=== PATIENT | female | born 1970 | race Caucasian/White ===

== ENCOUNTER 2016-03-30 09:28 | Emergency (ER) | payer MEDICAID, OTHER ==
[~2016-03-30] VITALS: Ht 160 cm; Wt 63.5 kg
[~2016-03-30 09:28] MED LIST: DELTASONE10 MG PO; FLEXERIL10 MG PO; MOTRIN600 MG PO; PROAIR HFA0.09 MG/Ac IH; PROVENTIL2.5 MG/3 M IH; ULTRAM50 MG PO; albuterol; nebulizer
[2016-03-30 09:30] VITALS: BP 127/81
--- NOTE | 2016-03-30 09:35 | NUR ---
EKG done in triage room.
--- NOTE | 2016-03-30 09:39 | NUR ---
Patient ambulated to bed 05.
--- NOTE | 2016-03-30 09:40 | NUR ---
45 /F BIB FAMILY C/O COUGH X 5 DAYS. PT STATES "I HAVE HEADACHE & CHEST PAIN W/COUGH; I GOT ANTIBIOTIC MEDICINES FROM URGENT CARE 5 DAYS AGO BUT STILL COUGH & FEVER. PT DENIES N/V/D; SKIN IS PINK/WARM/DRY; AAOX4 WITH EVEN AND STEADY GAIT; LUNGS BL MINIMAL WHEEZING; HR EVEN AND REGULAR; PT DENIES ANY FEVER OR SOB AT THIS TIME; PATIENT STATES PAIN OF0/10 AT THIS TIME; VSS; PATIENT POSITIONED FOR COMFORT; HOB ELEVATED; BEDRAILS UP X2; BED DOWN. ER MD MADE AWARE OF PT STATUS.
--- NOTE | 2016-03-30 09:56 | NUR ---
X RAY AT BEDSIDE
--- NOTE | 2016-03-30 10:30 | NUR ---
ER MD DR. BALLARD EVALUATING PT AT BEDSIDE.
--- NOTE | 2016-03-30 10:42 | NUR ---
PT C/O HEADACHE ;08/18. NOTIFIED DR BALLARD
[2016-03-30] MEDS ORDERED: KETOROLAC 60 MG/2 ML VIAL IM ONE (10:45)
[2016-03-30] MEDS ORDERED: ALBUTEROL 0.083% 2.5 MG/3 ML NEBU INH ONE (10:45)
[2016-03-30] MEDS ORDERED: methylPREDNISolone SS 125 MG in WATER STERILE 2 ML IM ONE (10:45)
--- NOTE | 2016-03-30 10:48 | NUR ---
RT at bedside to give patient breathing treatment.
--- NOTE | 2016-03-30 10:55 | NUR ---
[facility]i chang in [facility] - 03/30/16 at 1137 by MED1 RT AT BEDSIDE
--- NOTE | 2016-03-30 11:49 | NUR ---
Patient appears to be resting comfortably in bed. Vital Signs within normal limits. Respirations even and unlabored.WILL CONTINUE TO MONITOR.
[2016-03-30 12:05] VITALS: BP 116/72
--- NOTE | 2016-03-30 12:05 | NUR ---
Patient discharged with v/s stable. Written and verbal after care instructions given and explained. Patient alert, oriented and verbalized understanding of instructions. Ambulatory with steady gait. All questions addressed prior to discharge. ID band removed. Patient advised to follow up with PMD. Rx of ALBUTEROL & PREDNISONE given. Patient educated on indication of medication including possible reaction and side effects. Opportunity to ask questions provided and answered.
== END 2016-03-30 12:05 | disposition home or self-care (01) ==
LOC: MED 09:28
DX: J09.X2 Influenza due to identified novel influenza A virus with other respiratory manifestations (principal); R03.0 Elevated blood-pressure reading, without diagnosis of hypertension; J45.909 Unspecified asthma, uncomplicated; K21.9 Gastro-esophageal reflux disease without esophagitis
CPT/HCPCS: 36415; 71010; 87804; 93005; 94640; 94664; 96372; 99285; J1885; J2930; J7613; Q0092

== ENCOUNTER 2016-09-10 18:49 | Emergency (ER) | payer OTHER ==
[~2016-09-10] VITALS: Ht 160 cm; Wt 63.5 kg
[~2016-09-10 18:49] MED LIST changes: +ALBU-136 IH; -DELTASONE10 MG PO; -FLEXERIL10 MG PO; -MOTRIN600 MG PO; -PROAIR HFA0.09 MG/Ac IH; -PROVENTIL2.5 MG/3 M IH; -ULTRAM50 MG PO; -albuterol; -nebulizer
[2016-09-10 19:06] VITALS: BP 132/78
[2016-09-10 21:55] VITALS: BP 119/73
== END 2016-09-10 21:55 | disposition home or self-care (01) ==
LOC: MED 18:49
DX: D25.9 Leiomyoma of uterus, unspecified (principal); J45.909 Unspecified asthma, uncomplicated; K21.9 Gastro-esophageal reflux disease without esophagitis
CPT/HCPCS: 81002; 81025; 99283

== ENCOUNTER 2021-05-02 17:53 | Emergency (ER) | payer MEDICAID, OTHER ==
[~2021-05-02] VITALS: Ht 160 cm; Wt 80.7 kg
[~2021-05-02 17:53] MED LIST changes: +ALBU-118 IH; -ALBU-136 IH
[2021-05-02 17:55] VITALS: BP 124/100
--- NOTE | 2021-05-02 18:20 | NUR ---
Dr. Og is evaluating pt at bedside
--- NOTE | 2021-05-02 18:25 | NUR ---
50 y/o F BIB self c/o abdominal pain, asthma, lethargy, headache, loss of appetite, decreased appetite, nausea. Patient A&Ox4 states mid abdominal pain 8/10, cramping/pressure/intermittent, non-radiating worsening after meals. Pt states onset of acid reflux/burning sensation after meals. Pt also reports nausea. Denies vomiting, diarrhea, dysuria, fever/chills, urinary symptoms. Reports taking Tylenol that helps with headache. Reports fever 102 at home and SOB worse on exertion. Pt noted with distended abdomen, tender to palpation. Lung sounds coarse crackles upper. Skin dry/warm. Pt placed into a gown. Bed locked in lowest position, side rails x 1. PMH/Sx/Meds: asthma, cholecystectomy NKDA
[2021-05-02] MEDS ORDERED: FAMOTIDINE 20 MG/2 ML VIAL IVP ONE (18:40)
[2021-05-02] MEDS ORDERED: ALBUTEROL HFA MDI 90 MCG/ACTUATION 8 GM INH ONE (18:40)
[2021-05-02] MEDS ORDERED: ONDANSETRON 4 MG/2 ML VIAL IVP ONE (18:40)
[2021-05-02] MEDS ORDERED: SIMETHICONE 40 MG/0.6 ML PO ONE (18:40)
--- NOTE | 2021-05-02 18:46 | NUR ---
RT at bedside for breathing tx
--- NOTE | 2021-05-02 18:54 | NUR ---
18G IV ESTABLISHED IN L AC AND BLOODWORK COLLECTED FROM IV
--- NOTE | 2021-05-02 18:55 | NUR ---
EMT at bedside for EKG
--- NOTE | 2021-05-02 18:56 | NUR ---
BLOODWORK, INFLUENZA, URINE AND COVID SWAB HANDED TO BRAYDON [employer] INS[employer]OR BEDSIDE
--- NOTE | 2021-05-02 19:05 | NUR ---
Patient states relief to nausea and pain. Denies nausea, states pain 6/10. All pt needs met.
--- NOTE | 2021-05-02 19:07 | NUR ---
RAD at bedside
--- NOTE | 2021-05-02 19:14 | NUR ---
Report and transfer of care endorsed to CLAYTON Guerra.
[2021-05-02 19:17] LABS: BASOPHILS # (AUTO) 0.1 K/uL (0.00-0.22); BASOPHILS % (AUTO) 0.6 % (0.0-2.0); EOSINOPHILS # (AUTO) 0.5 K/uL (0-0.4); EOSINOPHILS % (AUTO) 5.6 % (0.0-4.0); HEMATOCRIT 40.4 % (36-48); HEMOGLOBIN 13.8 g/dL (12.0-16.0); LYMPHOCYTES # (AUTO) 2.5 K/uL (2.5-16.5); LYMPHOCYTES % (AUTO) 27.7 % (20.5-51.1); MEAN CORPUSCULAR HEMOGLOBIN 30 pg (27-31); MEAN CORPUSCULAR HGB CONC 34 g/dL (33-37); MEAN CORPUSCULAR VOLUME 86.4 fL (80-94); MONOCYTES # (AUTO) 0.6 K/uL (0.8-1.0); MONOCYTES % (AUTO) 6.9 % (1.7-9.3); NEUTROPHILS # (AUTO) 5.4 K/uL (1.8-7.7); NEUTROPHILS % (AUTO) 59.2 % (42.2-75.2); PLATELET COUNT (AUTO) 366 K/uL (140-450); RED BLOOD CELL COUNT(AUTO) 4.67 MIL/uL (4.20-5.40); RED CELL DISTRIBUTION WIDTH 13.7 % (11.6-13.7); WHITE BLOOD COUNT (AUTO) 9.1 K/uL (4.8-10.8)
[2021-05-02 19:18] LABS: APPEARANCE,URINE CLEAR (CLEAR); BILIRUBIN,URINE NEGATIVE (NEGATIVE); BLOOD, URINE TRACE-I (NEGATIVE); COLOR,URINE YELLOW (YELLOW); LEUKOCYTE ESTERASE ,URINE NEGATIVE (NEGATIVE); NITRITE, URINE NEGATIVE (NEGATIVE); UGLUCOSE NEGATIVE (NEGATIVE)
[2021-05-02] MEDS ORDERED: KETOROLAC 15 MG/ML VIAL IVP ONE (19:25)
[2021-05-02 19:35] LABS: ANION GAP 17.7 (8-16); CARBON DIOXIDE 26.3 mmol/L (21-32); CHLORIDE 107 mmol/L (98-107); CREATININE 0.8 mg/dL (0.6-1.3); GFR ARICAN-AMERICAN 98 mL/min (>90); GLUCOSE 107 mg/dL (74-106); SODIUM SERUM 147 mmol/L (136-145); UREA NITROGEN, BLOOD 10 mg/dL (7-18)
[2021-05-02 19:35] LABS: RBC,URINE 0-5 /HPF (0-5); WBC,URINE NONE SEEN /HPF (0-5)
--- NOTE | 2021-05-02 19:36 | NUR ---
pt ambulated to bathroom. gait was even and steady.
[2021-05-02 19:39] LABS: ALBUMIN 4.1 g/dL (3.4-5.0); ASPARTATE AMINOTRANSFERASE 38 U/L (15-37); LIPASE 165 U/L (73-393); TOTAL BILIRUBIN 0.6 mg/dL (0.0-1.0)
--- NOTE | 2021-05-02 19:45 | NUR ---
PT BACK ON MONITOR AFTER GOING TO RESTROOM. PT STATES SHE IS STARTING TO FEEL RELIEF FROM TORADOL
[2021-05-02] MEDS ORDERED: PRED20TA6 PO (19:55)
[2021-05-02] MEDS ORDERED: SIME80TA22 PO (19:55)
[2021-05-02] MEDS ORDERED: OMEP40EC24 PO (19:55)
[2021-05-02] MEDS ORDERED: ALBU6.7H IH (19:55)
[2021-05-02 19:56] LABS: PROTHROMBIN TIME 9.6 secs (10.8-13.4)
--- NOTE | 2021-05-02 20:16 | NUR ---
Dr. Og examining patient.
[2021-05-02] MEDS ORDERED: POLY17PD72 PO (20:33)
[2021-05-02] MEDS ORDERED: ONDA-188 PO (20:34)
[2021-05-02 21:00] VITALS: BP 125/84
--- NOTE | 2021-05-02 21:00 | NUR ---
Patient discharged with v/s stable. Written and verbal after care instructions given and explained. Patient alert, oriented and verbalized understanding of instructions. Ambulatory with steady gait. All questions addressed prior to discharge. ID band removed. Patient advised to follow up with PMD. Rx of ALBUTEROL SULFATE, PRILOSEC, ZOFRAN ODT, CLEARLAX. PREDNISONE, SIMETHICONE given. Opportunity to ask questions provided and answered.
== END 2021-05-02 21:00 | disposition home or self-care (01) ==
LOC: MED 17:53
DX: J45.901 Unspecified asthma with (acute) exacerbation (principal); Z20.822 Contact with and (suspected) exposure to COVID-19; J06.9 Acute upper respiratory infection, unspecified; R14.0 Abdominal distension (gaseous); K59.00 Constipation, unspecified; R82.81 Pyuria; J45.909 Unspecified asthma, uncomplicated; K21.9 Gastro-esophageal reflux disease without esophagitis; Z90.49 Acquired absence of other specified parts of digestive tract; Z79.899 Other long term (current) drug therapy
CPT/HCPCS: 36415; 71045; 74018; 80053; 81001; 83690; 84484; 85025; 85379; 85610; 85730; 87426; 87804; 93005; 96374; 96375; 99285; J1885; J2405; J3490; J3535

== ENCOUNTER 2021-09-23 10:28 | Emergency (ER) | payer MEDICAID, OTHER ==
[~2021-09-23] VITALS: Ht 160 cm; Wt 81.4 kg
[~2021-09-23 10:28] MED LIST changes: +ALBU6.7H IH; +OMEP40EC24 PO; +ONDA-188 PO; +POLY17PD72 PO; +PRED20TA6 PO; +SIME80TA22 PO
[2021-09-23 10:31] VITALS: BP 136/70
--- NOTE | 2021-09-23 10:31 | NUR ---
Pt ambulated to bed 03.
--- NOTE | 2021-09-23 10:40 | NUR ---
DR JUARES AT BEDSIDE EVALUATING PT
--- NOTE | 2021-09-23 10:45 | NUR ---
50YO FEMALE PT C/O GENERALIZED WEAKNESS XYESTERDAY. PT REPORTS FALLING BACKWARDS ONTO HEAD WHILE ROLLER BLADING, DENIES LOC. DENIES PAIN BUT STATES DISCOMFORT IN HEAD, NECK AND L SHOULDER. STATES TAKING TYLENOL W/ MILD RELIEF. PT BACK OF HEAD PRESENTS REDDENED, NO SWELLING PRESENT. NO VISIBLE INJURY TO BODY. PT STATES FEELING "TIRED" W/ EPISODES OF BLURRY VISION XYESTERDAY, DENIES AT THIS TIME. PT AMBULATORY W/STEADY GAIT AND ABLE TO MOVE EXTREMETIES W/ EASE. PT AAOX4, NO VISIBLE DISTRESS, SPEAKING CLEAR IN FULL SENTENCES . RESPIRATIONS EVEN AND UNLABORED. SON AT BEDSIDE HX: ASTHMA NKA
[2021-09-23 11:19] VITALS: BP 138/80
--- NOTE | 2021-09-23 11:19 | NUR ---
Patient discharged with v/s stable. Written and verbal after care instructions FOR CONCUSSION given and explained. Patient verbalized understanding. Ambulatory with steady gait. All questions addressed prior to discharge. Advised to follow up with PMD.
--- NOTE | 2021-09-23 11:25 | NUR ---
The patient's care was reviewed and supervised by Patricia Duncan RN.
== END 2021-09-23 11:19 | disposition home or self-care (01) ==
LOC: MED 10:28
DX: S09.90XA Unspecified injury of head, initial encounter (principal); W18.30XA Fall on same level, unspecified, initial encounter; Y93.89 Activity, other specified; Y92.89 Other specified places as the place of occurrence of the external cause; Y99.8 Other external cause status
CPT/HCPCS: 99282

== ENCOUNTER 2021-10-11 11:22 | Emergency (ER) | payer OTHER ==
[~2021-10-11] VITALS: Ht 160 cm; Wt 72.6 kg
[2021-10-11 11:31] VITALS: BP 131/80
--- NOTE | 2021-10-11 11:57 | NUR ---
50 Y/O FEMALE C/O HEAD PAIN + BLURRED VISION X5 DAYS. SEEN AT [facility] 3 WEEKS AGO FOR CONCUSSION. PMH: ASTHMA NKA
--- NOTE | 2021-10-11 11:57 | NUR ---
ambulated to bed 7 with steady gait
--- NOTE | 2021-10-11 12:20 | NUR ---
DR. RYAN EVALUATING PATIENT AT BEDSIDE.
--- NOTE | 2021-10-11 12:33 | NUR ---
PATIENT ELOPED FROM FACILITY. DISCHARGE INSTRUCTIONS NOT GIVEN TO PATIENT. DR. RYAN NOTIFIED.
[2021-10-11] MEDS ORDERED: DEXAMETHASONE 10 MG/ML VIAL IVP ONE (12:35)
[2021-10-11] MEDS ORDERED: diphenhydrAMINE 50 MG/ML VIAL IVP ONE (12:35)
[2021-10-11] MEDS ORDERED: METOCLOPRAMIDE 10 MG/2 ML INJ VIAL IVP ONE (12:35)
[2021-10-11] MEDS ORDERED: IBUP-2213 PO (22:14)
[2021-10-11] MEDS ORDERED: ACET-8386 PO (22:14)
[2021-10-11] MEDS ORDERED: ONDA8TAB87 PO (22:14)
== END 2021-10-11 12:33 | disposition left against medical advice (07) ==
LOC: MED 11:22
DX: R51.9 Headache, unspecified (principal); H53.8 Other visual disturbances; J45.909 Unspecified asthma, uncomplicated; K21.9 Gastro-esophageal reflux disease without esophagitis; F17.290 Nicotine dependence, other tobacco product, uncomplicated; Z79.899 Other long term (current) drug therapy
CPT/HCPCS: 99281

== ENCOUNTER 2021-10-11 17:33 | Emergency (ER) | payer OTHER ==
[~2021-10-11] VITALS: Ht 160 cm; Wt 72.6 kg
[2021-10-11 18:16] VITALS: BP 117/85
--- NOTE | 2021-10-11 20:22 | NUR ---
PT TAKEN TO BED 3
--- NOTE | 2021-10-11 20:30 | NUR ---
50 y/o female c/o head pain + blurred vision x 1 week. Was seen at [facility] x 3 weeks ago for concussion. Was seen at [facility] today but eloped. PMH: daniel CLAY
[2021-10-11] MEDS ORDERED: KETOROLAC 60 MG/2 ML VIAL IM ONE (20:45)
--- NOTE | 2021-10-11 21:10 | NUR ---
MEDICATED ORDERED FOR PAIN. LIGHTS TURNED DOWN
[2021-10-11] MEDS ORDERED: IBUP-2213 PO (22:14)
[2021-10-11] MEDS ORDERED: ONDA8TAB87 PO (22:14)
[2021-10-11] MEDS ORDERED: ACET-8386 PO (22:14)
[2021-10-12] MEDS ORDERED: ONDANSETRON 4 MG ODT PO ONE (00:15)
--- NOTE | 2021-10-12 02:10 | NUR ---
Patient discharged with v/s stable. Written and verbal after care instructions given and explained. Patient alert, oriented and verbalized understanding of instructions. Ambulatory with steady gait. All questions addressed prior to discharge. ID band removed. Patient advised to follow up with PMD. Rx of HYDROCODONE, IBUPROFEN, ZOFRAN given. Patient educated on indication of medication including possible reaction and side effects. Opportunity to ask questions provided and answered.
== END 2021-10-12 02:10 | disposition home or self-care (01) ==
LOC: MED 17:33
DX: R51.9 Headache, unspecified (principal); H53.8 Other visual disturbances; R11.0 Nausea; M54.2 Cervicalgia; J45.909 Unspecified asthma, uncomplicated; K21.9 Gastro-esophageal reflux disease without esophagitis; Z90.49 Acquired absence of other specified parts of digestive tract; Z79.899 Other long term (current) drug therapy
CPT/HCPCS: 70450; 81002; 81025; 96372; 99284; J1885; Q0162